=== PATIENT | male | born 1990 | race Caucasian/White ===

== ENCOUNTER 2023-12-18 21:03 | Emergency (ER) | payer OTHER ==
[~2023-12-18] VITALS: Ht 170.2 cm; Wt 78.5 kg
[2023-12-18 21:10] VITALS: BP 123/76; PULSE 64; RESP 16; TEMP 97.3; O2SAT 98
[2023-12-18] MEDS: IBUPROFEN 600 MG TAB PO ONE (21:36)
[2023-12-18] MEDS ORDERED: NAPR-337 PO (21:55)
== END 2023-12-18 22:03 | disposition home or self-care (01) ==
LOC: MED 21:03
DX: S43.492A Other sprain of left shoulder joint, initial encounter (principal); Z79.899 Other long term (current) drug therapy; V49.88XA Car occupant (driver) (passenger) injured in other specified transport accidents, initial encounter; Y93.89 Activity, other specified; Y92.89 Other specified places as the place of occurrence of the external cause; Y99.8 Other external cause status
CPT/HCPCS: 73030; 99283